=== PATIENT | male | born 1950 | race Caucasian/White ===

== ENCOUNTER → 2022-11-21 | Outpatient (CLI) | payer MEDICARE ==
[2022-11-21 11:41] LABS: ALT 23 U/L (10-49); AST 24 U/L (14-35); African American GFR (CKD) 40.5 (60.0-200.0); Albumin 4.3 g/dL (3.8-4.9); Albumin/Globulin Ratio 1.79 (1.60-3.17); Alkaline Phosphatase 76 U/L (41-126); BUN/Creat Ratio 16.05 Ratio (12.00-20.00); Blood Urea Nitrogen 30.5 mg/dL (9.0-27.0); Carbon Dioxide 26.1 mmol/L (20.0-27.5); Chloride 102 mmol/L (96-109); Chol/HDL Ratio 3.57 Ratio; Globulin 2.4 g/dL (1.6-3.3); Glucose 165 mg/dL (70-110); LDL Cholesterol,Calculated 116.3 mg/dL (0.0-131.0); Non-African American GFR(CKD) 34.9 (60.0-200.0); Potassium 4.1 mmol/L (3.5-5.5); Sodium 140 mmol/L (135-145); Total Protein 6.7 g/dL (6.2-8.2)
[2022-11-21 22:43] LABS: Microalbumin Creatinine Ratio <30 mg/g Creat (0-30)
== END | disposition home or self-care (01) ==
LOC: LABWHC1 07:20
PROVIDERS: ATTEND Internal Medicine Endocrinology, Diabetes & Metabolism
DX: E11.65 Type 2 diabetes mellitus with hyperglycemia (principal)
CPT/HCPCS: 36415; 80053; 80061; 82043; 82570; 83036; 84443

== ENCOUNTER → 2023-04-27 | Outpatient (CLI) | payer MEDICARE ==
[2023-04-27 11:25] LABS: HCT 42.7 % (39.6-50.0); HGB 14.7 d/dL (13.0-17.0); MCH 33.3 pg (27.0-32.0); MCHC 34.4 d/dL (32.0-37.0); MCV 96.8 FL (80.0-97.0); Mean Platelet Volume 10.3 FL (9.5-12.2); NRBC Per 100 WBC 0 X 10*3/uL (0.00-0.01); Platelet Count 222 X 10*3/uL (140-440); RBC 4.41 X 10*6/uL (4.40-5.60); RDW 13.2 % (11.5-14.5); WBC 8.99 X 10*3/uL (4.50-10.00)
[2023-04-27 11:26] LABS: Basophils # (A) 0.04 X 10*3/uL (0.00-0.10); Basophils % (A) 0.4 %; Eosinophils # (A) 0.09 X 10*3/uL (0.04-0.35); Lymphocytes # (A) 1.96 X 10*3/uL (0.90-5.00); Lymphocytes % (A) 21.8 %; Monocytes # (A) 0.74 X 10*3/uL (0.20-1.00); Monocytes % (A) 8.2 %; Neutrophils # (A) 6.11 X 10*3/uL (1.80-7.70)
[2023-04-27 11:41] LABS: Microalbumin Creatinine Ratio <27 mg/g Cr (0-30); Urine Creatinine 44.7 mg/dL (39.0-259.0)
[2023-04-27 11:59] LABS: % Iron Saturation 28.28 (15.00-50.00); ALT 38 U/L (10-49); AST 25 U/L (14-35); Albumin 4.2 d/dL (3.8-4.9); Albumin/Globulin Ratio 1.68 Ratio (1.60-3.17); Alkaline Phosphatase 88 U/L (41-126); BUN/Creat Ratio 16.67 Ratio (12.00-20.00); Calcium 10.1 mg/dL (8.7-10.3); Carbon Dioxide 26.4 mmol/L (21.6-31.8); Chloride 101 mmol/L (96-109); Chol/HDL Ratio 2.92 Ratio; Globulin 2.5 d/dL (1.6-3.3); Glucose 116 mg/dL (70-110); Iron 97 UG/DL (65-175); LDL Cholesterol,Calculated 95.2 mg/dL (0.0-131.0); Magnesium 2.1 mg/dL (1.5-2.4); Phosphorus 2.7 mg/dL (2.4-5.1); Potassium 3.8 mmol/L (3.5-5.5); Sodium 139 mmol/L (135-145); Total Bilirubin 0.6 mg/dL (0.3-1.2); Total Iron Binding Capacity 343 UG/DL (228-460); Total Protein 6.7 d/dL (6.2-8.2); Uric Acid 4.6 mg/dL (3.7-8.7)
[2023-04-27 12:17] LABS: Appearance,Urine Clear (Clear); Bilirubin,Urine Negative (Negative); Blood,Urine Negative (Negative); Color,Urine Yellow (Yellow); Ketones,Urine Negative (Negative); Nitrite,Urine Negative (Negative); Specific Gravity,Urine 1.017 (1.001-1.030); Urobilinogen,Urine 0.2 E.U./DL
== END | disposition home or self-care (01) ==
LOC: LABWHC1 06:50
PROVIDERS: ATTEND Internal Medicine Nephrology
DX: E55.9 Vitamin D deficiency, unspecified (principal); N39.0 Urinary tract infection, site not specified; N25.81 Secondary hyperparathyroidism of renal origin; D64.9 Anemia, unspecified; E11.65 Type 2 diabetes mellitus with hyperglycemia; M10.9 Gout, unspecified; Z94.0 Kidney transplant status
CPT/HCPCS: 36415; 80053; 80061; 81003; 82043; 82306; 82570; 82728; 83036; 83540; 83550; 83735; 83970; 84100; 84443; 84550; 85025

== ENCOUNTER → 2023-12-08 | Outpatient (CLI) | payer MEDICARE ==
[2023-12-08 15:42] LABS: ALT 19 U/L (10-49); AST 23 U/L (14-35); Albumin 4.3 g/dL (3.8-4.9); Albumin/Globulin Ratio 1.79 Ratio (1.60-3.17); Alkaline Phosphatase 87 U/L (41-126); BUN/Creat Ratio 16.79 Ratio (12.00-20.00); Blood Urea Nitrogen 31.9 mg/dL (9.0-27.0); Calcium 9.6 mg/dL (8.7-10.3); Carbon Dioxide 24.2 mmol/L (21.6-31.8); Chloride 104 mmol/L (96-109); Chol/HDL Ratio 2.82 Ratio; Globulin 2.4 g/dL (1.6-3.3); Glucose 140 mg/dL (70-110); LDL Cholesterol,Calculated 87.3 mg/dL (0.0-131.0); Potassium 4.2 mmol/L (3.5-5.5); Sodium 141 mmol/L (135-145); Total Bilirubin 0.8 mg/dL (0.3-1.2); Total Protein 6.7 g/dL (6.2-8.2)
[2023-12-08 18:26] LABS: Microalbumin Creatinine Ratio <18 mg/g Cr (0-30); Urine Creatinine 66.8 mg/dL (39.0-259.0)
== END | disposition home or self-care (01) ==
LOC: LABWHC1 08:20
PROVIDERS: ATTEND Internal Medicine Endocrinology, Diabetes & Metabolism
DX: E11.65 Type 2 diabetes mellitus with hyperglycemia (principal)
CPT/HCPCS: 36415; 80053; 80061; 82043; 82570; 83036; 84443

== ENCOUNTER → 2024-12-05 | Outpatient (CLI) | payer MEDICARE ==
[2024-12-05 15:40] LABS: ALT 33 U/L (10-49); AST 32 U/L (14-35); Albumin 4.1 g/dL (3.8-4.9); Albumin/Globulin Ratio 1.71 Ratio (1.60-3.17); Alkaline Phosphatase 82 U/L (41-126); Blood Urea Nitrogen 22.1 mg/dL (9.0-27.0); Calcium 9.2 mg/dL (8.7-10.3); Carbon Dioxide 22.9 mmol/L (21.6-31.8); Chloride 100 mmol/L (96-109); Chol/HDL Ratio 2.14 Ratio; Globulin 2.4 g/dL (1.6-3.3); Glucose 65 mg/dL (70-110); LDL Cholesterol,Calculated 57.8 mg/dL (0.0-131.0); Potassium 4.1 mmol/L (3.5-5.5); Sodium 135 mmol/L (135-145); Total Bilirubin 0.6 mg/dL (0.3-1.2); Total Protein 6.5 g/dL (6.2-8.2)
[2024-12-05 17:40] LABS: Microalbumin Creatinine Ratio <36 mg/g Cr (0-30); Urine Creatinine 33.3 mg/dL (39.0-259.0)
--- NOTE | 2024-12-05 21:15 | US ---
EXAMINATION TYPE: US kidneys/renal and bladder DATE OF EXAM: 12/05/2024 COMPARISON: NONE CLINICAL INDICATION: Male, 74 years old with history of N18.30 CHRONIC KIDNEY DISEASE, STAGE 3 UNSPEC IFIED; CKD. Renal transplant 47 years ago. TECHNIQUE: Grayscale imaging of the bilateral kidneys and urinary bladder: FINDINGS: EXAM MEASUREMENTS: Right Kidney: 8.4 x 4.7 x 4.2 cm Left Kidney: unable to visualize Right Transplant Kidney: 11.7 x 7.2 x 4.7cm Right Kidney: Markedly atrophic and echogenic with a meniscal cyst measuring 3.7 x 3.4 x 3.6cm. Corti lorin thinning and atrophy. Left Kidney: unable to visualize Right Transplant Kidney: Mild pelvicaliectasis which may be transient. Bladder: Prominent distention of the urinary bladder. Bilateral Jets seen: no IMPRESSION: 1. Right kidney is visualized, markedly atrophic. Unable to visualize the left kidney probably due to the degree of renal atrophy. 2. Right lower quadrant transplant kidney. There is mild pelvicaliectasis which may be transient give n the degree of prominent urinary bladder distention. Consider short interval follow-up with the blad sofya empty to reassess. Correlate with BUN and creatinine values. [facility], , 12/05/2024 9:13 PM
== END | disposition home or self-care (01) ==
LOC: RADUSWWP 08:43
PROVIDERS: ATTEND Internal Medicine Nephrology
DX: N18.30 Chronic kidney disease, stage 3 unspecified (principal); N26.1 Atrophy of kidney (terminal); Z94.0 Kidney transplant status; R33.9 Retention of urine, unspecified; N32.89 Other specified disorders of bladder
CPT/HCPCS: 76770; 80053; 80061; 82043; 82570; 83036; 84443